=== PATIENT | female | born 1980 | race Caucasian/White ===

== ENCOUNTER 2018-02-12 13:40 | Emergency (ER) | payer OTHER ==
[~2018-02-12] VITALS: Ht 177.8 cm; Wt 88.8 kg
[~2018-02-12 13:40] MED LIST: TYLENOL EXTRA500 MG PO
[2018-02-12 18:02] VITALS: BP 106/70
== END 2018-02-12 18:14 | disposition home or self-care (01) ==
LOC: EME 13:40
DX: I80.01 Phlebitis and thrombophlebitis of superficial vessels of right lower extremity (principal); J45.909 Unspecified asthma, uncomplicated; Z85.41 Personal history of malignant neoplasm of cervix uteri; Z90.710 Acquired absence of both cervix and uterus; F17.200 Nicotine dependence, unspecified, uncomplicated; Z91.040 Latex allergy status; Z88.6 Allergy status to analgesic agent; Z88.5 Allergy status to narcotic agent; Z88.0 Allergy status to penicillin; Z88.8 Allergy status to other drugs, medicaments and biological substances
CPT/HCPCS: 93971; 99281; 99283

== ENCOUNTER 2018-05-04 14:40 | Emergency (ER) | payer OTHER ==
[~2018-05-04] VITALS: Ht 177.8 cm; Wt 80.5 kg
[2018-05-04 16:48] LABS: HEMATOCRIT 40.5 % (36.0-46.0); HEMOGLOBIN 13.9 G/DL (11.9-15.5); MCH 32.6 PG (29.0-34.0); MCHC 34.3 G/DL (30.0-36.0); MCV 95.1 FL (83-99); PLATELET COUNT 264 K/uL (156-360); RBC DIS.WIDTH-CV 11.9 % (11.8-14.6); RBC DIS.WIDTH-SD 41.6 % (39-53); RED BLOOD COUNT 4.26 M/uL (3.80-5.20)
[2018-05-04 17:04] LABS: CHLORIDE 109 mEq/L (99-109); POTASSIUM 4.4 mEq/L (3.7-5.4); SODIUM 140 mEq/L (136-147)
[2018-05-04 17:05] LABS: GLUCOSE 96 mg/dL (70-99)
[2018-05-04 17:09] LABS: CREATININE 0.7 mg/dL (0.6-1.3); GFR ESTIMATE (CALCULATED) > 59 mL/min/
[2018-05-04 17:10] LABS: UREA NITROGEN (BUN) 11 mg/dL (9-23)
[2018-05-04 17:17] LABS: TROP-I INTERPRETATION NEGATIVE; TROPONIN-I < 0.01 ng/mL (0.0-0.30)
[2018-05-04] MEDS ORDERED: LIDODERM 5% P1 PATCH TD (17:34)
[2018-05-04 17:41] VITALS: BP 137/91
== END 2018-05-04 17:43 | disposition home or self-care (01) ==
LOC: EME 14:40
PROVIDERS: Nurse Practitioner Family
DX: R07.81 Pleurodynia (principal); R07.9 Chest pain, unspecified; I49.8 Other specified cardiac arrhythmias; R94.31 Abnormal electrocardiogram [ECG] [EKG]; J45.909 Unspecified asthma, uncomplicated; F17.200 Nicotine dependence, unspecified, uncomplicated; Z85.41 Personal history of malignant neoplasm of cervix uteri; Z90.711 Acquired absence of uterus with remaining cervical stump
CPT/HCPCS: 71101; 80048; 84484; 85027; 93005; 99281; 99283; J1885